=== PATIENT | female | born 1985 | race Two or more races ===

== ENCOUNTER 2024-01-24 12:16 | Emergency (ER) | payer OTHER ==
[2024-01-24 12:24] VITALS: BP 99/66; PULSE 76; RESP 19; TEMP 97.9; BMI 29.2
[2024-01-24] MEDS ORDERED: ACETAMINOPHEN 500 MG TABLET (FP) ONE (15:01)
[2024-01-24] MEDS: ACETAMINOPHEN 500 MG TABLET (FP) PO ONE (15:04)
[2024-01-24 15:24] LABS: URINE APPEARANCE Error; URINE BILIRUBIN NEGATIVE (NEGATIVE); URINE COLOR YELLOW; URINE GLUCOSE (UA) NEGATIVE (NEGATIVE); URINE KETONE TRACE (NEGATIVE); URINE LEUK ESTERASE NEGATIVE (NEGATIVE); URINE NITRITE NEGATIVE (NEGATIVE); URINE PROTEIN NEGATIVE (NEGATIVE); URINE UROBILINOGEN 0.2 mg/dL (0.2-1.0)
[2024-01-24 15:25] LABS: HCG,QUALITATIVE URINE Positive
== END 2024-01-24 18:00 | disposition home or self-care (01) ==
LOC: EDBD 12:16 → JER 12:16
DX: O99.891 Other specified diseases and conditions complicating pregnancy (principal); R51.9 Headache, unspecified; O26.892 Other specified pregnancy related conditions, second trimester; R10.30 Lower abdominal pain, unspecified; Z3A.14 14 weeks gestation of pregnancy
CPT/HCPCS: 76801-TC; 81003; 84703; 87086; 99284-25